=== PATIENT | male | born 1965 | race Caucasian/White ===

== ENCOUNTER → 2019-06-10 | Outpatient (CLI) | payer OTHER ==
[2019-06-10 10:38] LABS: URINE BLOOD NEGATIVE (Negative); URINE CLARITY CLEAR; URINE COLOR YELLOW; URINE GLUCOSE-RANDOM NEGATIVE (Negative); URINE KETONES TRACE (Negative); URINE LEUKOCYTES NEGATIVE (Negative); URINE NITRITE NEGATIVE (Negative); URINE PROTEIN 1+ (Negative); URINE SPECIFIC GRAVITY >= 1.030 (1.005-1.030); URINE UROBILINOGEN 0.2 E.U./dl (0.2-1.0)
[2019-06-10 10:40] LABS: ICTOTEST (BILI CONFIRMATORY) Negative (Negative); URINE BILIRUBIN 1+ (Negative)
[2019-06-10 10:51] LABS: ALBUMIN 4.2 g/dL (3.4-5.0); CALCIUM 9.3 mg/dL (8.5-10.1); CREATININE 1.2 mg/dL (0.6-1.3); TOTAL BILIRUBIN 0.9 mg/dL (<0.1-1.0); TOTAL PROTEIN 7.4 g/dL (6.4-8.2)
--- NOTE | 2019-06-12 14:03 | PF ---
[address] [address] PULMONARY FUNCTION REPORT Name: KRYSTINAKRIS Patricia Room: [facility]#: [id number] Admission: 06/10/19 Attend Phys: Nolan Rivera MD Discharge: Date of : 67 Report #: [id number] THIS REPORT FOR: //name// CC: Nolan Rivera [facility] physician/PCP DATE OF SERVICE: 06/10/2019 PULMONARY FUNCTION TEST REPORT FEV1 to FVC ratio is 73% of predicted. FEV1 is 3.81 liters, 90% of predicted. FVC is 5.24 liters, 95% of predicted. FEV1 increased by 3%. In summary, spirometry is within normal limits. There is no significant postbronchodilator change. <ELECTRONICALLY SIGNED> By: Jemal Woodard MD 06/12/19 1403 [id number] Woodard MD /nt
== END ==
LOC: M.PUL 08:28
PROVIDERS: Orthopaedic Surgery
DX: E11.9 Type 2 diabetes mellitus without complications (principal); R91.8 Other nonspecific abnormal finding of lung field; M25.9 Joint disorder, unspecified